=== PATIENT | male | born 1940 | race Caucasian/White ===

== ENCOUNTER 2024-11-14 14:50 | Outpatient (CLI) | payer MEDICARE, MEDICAID | END 2024-11-14 14:51 | disposition home or self-care (01) | LOC: CSHULT 14:50 | PROVIDERS: ATTEND Family Medicine Sports Medicine | DX: R60.0 Localized edema (principal); I70.202 Unspecified atherosclerosis of native arteries of extremities, left leg | CPT/HCPCS: 93923; 93970 ==